=== PATIENT | male | born 1975 | race Caucasian/White ===

== ENCOUNTER 2025-04-03 12:06 | Emergency (ER) | payer MEDICAID, OTHER ==
[~2025-04-03] VITALS: Ht 175.3 cm; Wt 82.0 kg
[2025-04-03] MEDS: ASPIRIN 81MG TABLET PO ONE (12:59)
[2025-04-03 13:15] LABS: BASOPHILS % 0.8 % (0.0-2.0); EOSINOPHILS % 4.3 % (0.0-5.0); HEMATOCRIT. 41.6 % (42.0-52.0); HEMOGLOBIN. 14.1 g/dL (14.0-18.0); LYMPHOCYTES % 23.0 % (20.0-50.0); MEAN PLATELET VOLUME 8.3 fl (7.4-10.4); MONOCYTES % 5.0 % (2.0-8.0); NEUTROPHILS % 66.9 % (40.0-76.0); PLATELET 218 x1000/uL (130-400); RED BLOOD CELL COUNT 5.10 mill/uL (4.7-6.1); RED CELL DISTRIBUTION WIDTH 14.9 % (11.6-14.6)
[2025-04-03 13:40] LABS: CREATININE 0.9 mg/dL (0.6-1.3)
[2025-04-03 13:41] LABS: TROPONIN I HIGH SENSITIVITY < 4 ng/L (3.0-53); UREA NITROGEN BLOOD 10 mg/dL (9-23)
[2025-04-03 13:42] LABS: ASPARTATE AMINOTRANSFERASE 19 IU/L (<34)
[2025-04-03 13:43] LABS: BILIRUBIN DIRECT 0.1 mg/dL (<=3.0); BILIRUBIN TOTAL 0.6 mg/dL (0.1-1.0); PROTEIN TOTAL 7.0 g/dL (6.0-8.3)
[2025-04-03] MEDS: ALBUTEROL (0.083%) 2.5MG/3ML NEB HHN ONE (13:47)
[2025-04-03] MEDS: IPRATROPIUM BROMIDE (0.02%) 0.5MG/2.5ML NEB HHN ONE (13:47)
[2025-04-03 13:48] VITALS: PULSE 65; RESP 22; O2SAT 96
[2025-04-03 15:14] VITALS: BP 111/69; PULSE 89; RESP 16; TEMP 36.7; O2SAT 98
== END 2025-04-03 15:13 | disposition short-term general hospital (02) ==
LOC: ER 12:06 → CMPBEDREQ 04-04 03:15
DX: R07.9 Chest pain, unspecified (principal); J45.909 Unspecified asthma, uncomplicated; Z86.73 Personal history of transient ischemic attack (TIA), and cerebral infarction without residual deficits
CPT/HCPCS: 80076; 80048; 85025; 84484; 36415; 71045; 94640; 93005; 99285; Z7610 ×4; 94664